=== PATIENT | female | born 1985 | race Hispanic/Latino ===

== ENCOUNTER 2019-12-24 10:03 | Emergency (ER) | payer BC ==
[~2019-12-24] VITALS: Ht 165.1 cm; Wt 86.2 kg
--- OUTSIDE RECORDS SUMMARY | 2019-12-24 10:07 | XMS REPORT ---
Author Author [facility] Address Unknown Phone Unavailable Care Team Providers Care Tariff Compiler Name Role Phone Unavailable Unavailable Payers Payer Name Policy Type Policy Number Effective Date Expiration Date Problems This patient has no known problems. Allergies, Adverse Reactions, Alerts Allergy Name Allergy Type Status Severity Reaction(s) Onset Date Inactive Date Treating Clinician Comments No Known Allergies DA Active U 2019-02-08 00:00:00 No Known Allergies DA Active U 2017-09-28 00:00:00 Medications This patient has no known medications. Results Test Description Test Time Test Comments Text Results Atomic Results Result Comments BASIC METABOLIC PANEL 2019-02-08 02:00:00 SODIUM (test code=NA) 135 mEq/L 134-147 POTASSIUM (test code=K) 3.7 mEq/L 3.4-5.0 CHLORIDE (test code=CL) 103 mEq/L 100-108 CARBON DIOXIDE (test code=CO2) 23 mEq/L 21-33 ANION GAP (test code=GAP) 13 0-20 GLUCOSE (test code=GLU) 326 mg/dL 70-110 BLOOD UREA NITROGEN (test code=BUN) 8 mg/dL 7-18 GLOMERULAR FILTRATION RATE (test code=GFR) 115.9 105-110 Units of measure=ml/min/1.73 m2 CREATININE (test code=CREAT) 0.6 mg/dL 0.6-1.3 CALCIUM (test code=CA) 8.0 mg/dL 8.0-10.5 CBC W/AUTO [id number] 01:36:00* Test Item Value Reference Range Comments WHITE BLOOD CELL (test code=WBC) 10.25 x10 3/uL 4.5-11.0 RED BLOOD CELL (test code=RBC) 4.68 x10 6/uL 3.54-5.02 HEMOGLOBIN (test code=HGB) 12.6 g/dL 11.0-15.0 HEMATOCRIT (test code=HCT) 37.7 % 33.0-45.0 MEAN CELL VOLUME (test code=MCV) 80.6 fL 81.0-99.0 MEAN CELL HGB (test code=MCH) 26.9 pg 27.0-33.0 MEAN CELL HGB CONCETRATION (test code=MCHC) 33.4 g/dL 33.0-37.0 RED CELL DISTRIBUTION WIDTH CV (test code=RDW) 12.2 % 11.5-14.5 RED CELL DISTRIBUTION WIDTH SD (test code=RDW-SD) 35.3 fL 37.0-54.0 PLATELET COUNT (test code=PLT) 255 x10 3/uL 150-400 MEAN PLATELET VOLUME (test code=MPV) 11.9 fL 7.0-9.0 NEUTROPHIL % (test code=NT%) 65.0 % 56.0-77.0 IMMATURE GRANULOCYTE % (test code=IG%) 0.3 % 0.0-2.0 LYMPHOCYTE % (test code=LY%) 25.6 % 14.0-32.0 MONOCYTE % (test code=MO%) 8.0 % 4.8-9.0 EOSINOPHIL % (test code=EO%) 0.8 % 0.3-3.7 BASOPHIL % (test code=BA%) 0.3 % 0.0-2.0 NUCLEATED RBC % (test code=NRBC%) 0.0 % 0-0 NEUTROPHIL # (test code=NT#) 6.67 x10 3/uL 2.0-7.6 IMMATURE GRANULOCYTE # (test code=IG#) 0.03 x10 3/uL 0.00-0.03 LYMPHOCYTE # (test code=LY#) 2.62 x10 3/uL 1.0-3.8 MONOCYTE # (test code=MO#) 0.82 x10 3/uL 0.1-0.8 EOSINOPHIL # (test code=EO#) 0.08 x10 3/uL 0.0-0.2 BASOPHIL # (test code=BA#) 0.03 x10 3/uL 0.0-0.2 NUCLEATED RBC # (test code=NRBC#) 0.00 x10 3/uL 0.0-0.1 MANUAL DIFF REQUIRED (test code=MDIFF) NO - XR CHEST 2 [id number] 00:42:00 FAX: Ry Sosa [phone] [place]: St: REG Name: Rommel MARIIA MEJIA [facility] : [birth year] Age/S: 33/F [address] [place] [address] Unit #: [id number] Loc: [place] [address] Phys: Ry June DO Acct: [id number] Dis Date: Status: REG ER PHONE #: [phone] Exam Date: 02/08/2019 0037 FAX #: [phone] Reason: flu symptoms EXAMS: CPT CODE: [id number] XR CHEST 2 V [id number] Chest x-ray 2 view History: Flu symptoms. Comparison: 09/13/2017 Findin gs Mediastinum: The cardiomediastinal contours are unremarkable. Lungs and pleural spaces: There is no focal consol idation, pneumothorax or pleural effusion. The pulmonary vascularity is normal. Impression: No acute cardiopulmon lupe findings. at 0042 Reported and signed by: Grabiel Conti M.D. CC: Ry Bonds chnologist: RT Micki(Lara) Trnscrd Date/ Time/By: 02/08/2019 (004) : By: [email or web address] Orig Print D/T: S: 02/09/20 (0048) PAGE 1 Signed Report
[2019-12-24] MEDS ORDERED: SODIUM CHLORIDE 0.9% 1000ML 1,000 ML IV STA (10:29)
[2019-12-24] MEDS ORDERED: ONDANSETRON HCL INJ 2MG/ML 2ML 2 MG/ML VIAL IV ONE (10:30)
[2019-12-24] MEDS ORDERED: KETOROLAC TROMETHAMINE 30 MG/ML VIAL IV ONE (10:30)
[2019-12-24] MEDS ORDERED: KETOROLAC TROMETHAMINE 30 MG/ML VIAL ONE (10:56)
[2019-12-24] MEDS ORDERED: SODIUM CHLORIDE 0.9% 1000ML 1,000 ML ONE (10:56)
[2019-12-24] MEDS ORDERED: ONDANSETRON HCL INJ 2MG/ML 2ML 2 MG/ML VIAL ONE (10:56)
[2019-12-24] MEDS ORDERED: CEFTRIAXONE SOD 1 GM VIAL IV ONE (11:00)
--- NOTE | 2019-12-24 11:00 | NUR ---
iv dcd, no redness or edema noted. iv cath intact. pt ambulatory at discharge.
[2019-12-24] MEDS ORDERED: CEFTRIAXONE SOD 1 GM VIAL ONE (11:25)
[2019-12-24] MEDS ORDERED: SODIUM CHLORIDE 0.9% 50ML 50 ML ONE (11:27)
--- NOTE | 2019-12-24 11:42 | Diagnostic Imaging Report ---
EXAM: CT Abdomen and Pelvis WITHOUT contrast INDICATION: ^right flank pain ^[id number] ^[id number] COMPARISON: None. TECHNIQUE: Abdomen and pelvis were scanned utilizing a multidetector helical scanner from the lung base to the pubic symphysis without administration of IV contrast. Absence of intravenous contrast decreases sensitivity for detection of focal lesions and vascular pathology. Coronal and sagittal reformations were obtained. Routine protocol was performed. IV CONTRAST: None. ORAL CONTRAST: Water RADIATION DOSE: Total DLP: 801.1 mGy*cm Estimated effective dose: (DLP x 0.015 x size factor) mSv COMPLICATIONS: None FINDINGS: LINES and TUBES: None. LOWER THORAX: Mild linear scarring in both lung bases. HEPATOBILIARY: Mild hepatomegaly. Diffuse hepatic steatosis. No focal hepatic lesions. No biliary ductal dilation. GALLBLADDER: No radio-opaque stones or sludge. No wall thickening. SPLEEN: The spleen is mildly enlarged measuring 13.7 cm in length in the craniocaudal dimension. PANCREAS: No focal masses or ductal dilatation. ADRENALS: No adrenal nodules KIDNEYS/URETERS: No hydronephrosis. No cystic or solid mass lesions. No stones. GI TRACT: No abnormal distention, wall thickening, or evidence of bowel obstruction. Appendix is normal. PELVIC ORGANS/BLADDER: Asymmetric enlargement of the right ovary measuring 4.3 cm. The uterus is normal in caliber and homogeneous in appearance. The urinary bladder appears unremarkable. LYMPH NODES: No lymphadenopathy. VESSELS: Unremarkable. PERITONEUM / RETROPERITONEUM: No free air or fluid. BONES: Unremarkable. SOFT TISSUES: Unremarkable. IMPRESSION: 1. Asymmetric enlargement of the right ovary may be due to the presence of a cyst. Cannot exclude ovarian torsion. Recommend further evaluation with pelvic ultrasound. 2. Mild hepatomegaly with associated hepatic steatosis. 3. No calcified stones in the collecting system, bilaterally. Signed by: Dr. Rocio Vieyra M.D. on 12/24/2019 11:38 AM
== END 2019-12-24 11:55 | disposition home or self-care (01) ==
LOC: FSED 10:03
DX: M54.5 Low back pain (principal); R11.0 Nausea; R10.31 Right lower quadrant pain; N10 Acute pyelonephritis
CPT/HCPCS: 74176; 81003; 81025; 85025; 96374; 96375; 99283; J0696; J1885; J2405; J7030

== ENCOUNTER 2022-07-07 18:50 | Emergency (ER) | payer BC ==
[~2022-07-07] VITALS: Ht 165.1 cm; Wt 86.2 kg
[2022-07-07] MEDS ORDERED: KETOROLAC TROMETHAMINE 30 MG/ML VIAL IV STA (19:11)
[2022-07-07 19:21] LABS: BASOPHILS # (AUTO) 0.1 (0.0-0.1); BASOPHILS % 0.6 % (0.0-1.0); EOSINOPHILS # (AUTO) 0.1 (0.0-0.4); EOSINOPHILS % 0.9 % (0.0-6.0); HEMATOCRIT 41.3 % (34.2-44.1); HEMOGLOBIN 12.3 g/dL (12.0-16.0); LYMPHOCYTES % 31.1 % (18.0-39.1); MEAN CORPUSCULAR HEMOGLOBIN 25.1 pg (28-32); MEAN CORPUSCULAR HGB CONC 29.8 g/dL (31-35); MEAN CORPUSCULAR VOLUME 84.1 fL (81-99); NEUTROPHILS # (AUTO) 7.5 (2.1-6.9); PLATELET COUNT 394 x10e3/uL (140-360); RED BLOOD COUNT 4.91 x10e6/uL (3.6-5.1); RED CELL DISTRIBUTION WIDTH 12.9 % (11.7-14.4)
[2022-07-07 19:25] LABS: AMPHETAMINES SCREEN,URINE NEGATIVE (NEGATIVE); BENZODIAZEPINES SCREEN,URINE NEGATIVE (NEGATIVE); PHENCYCLIDINE SCREEN,URINE NEGATIVE (NEGATIVE)
[2022-07-07 19:39] LABS: ALANINE AMINOTRANSFERASE 17 IU/L (0-55); ALBUMIN 3.9 g/dL (3.5-5.0); ALKALINE PHOSPHATASE 75 IU/L (40-150); ANION GAP 17.5 mmol/L (8-16); BLOOD UREA NITROGEN 11 mg/dL (7-26); BUN/CREATININE RATIO 15 (6-25); CALCIUM 9.1 mg/dL (8.4-10.2); CARBON DIOXIDE 23 mmol/L (22-29); CHLORIDE 102 mmol/L (98-107); CREATINE KINASE 28 IU/L (29-168); CREATININE, SERUM 0.75 mg/dL (0.57-1.11); GLUCOSE 241 mg/dL (74-118); POTASSIUM 3.5 mmol/L (3.5-5.1); SODIUM 139 mmol/L (136-145)
[2022-07-07 20:20] VITALS: BP 106/77
== END 2022-07-07 20:30 | disposition home or self-care (01) ==
LOC: ER 18:53
DX: R06.02 Shortness of breath (principal); R07.89 Other chest pain; E11.65 Type 2 diabetes mellitus with hyperglycemia; E78.5 Hyperlipidemia, unspecified
CPT/HCPCS: 36415; 71045; 80053; 80307; 81025; 82550; 82553; 83690; 83880; 84484; 85025; 85379; 93005; 99283; J1885